=== PATIENT | male | born 1960 | race Hispanic/Latino ===

== ENCOUNTER 2023-06-21 07:01 | Day surgery (SDC) | payer MEDICARE ==
[~2023-06-21] VITALS: Ht 162.6 cm; Wt 82.1 kg
[~2023-06-21 07:01] MED LIST: BAYER ASPIRIN E81 MG PO; CRESTOR5 MG PO; DIOVAN160 MG PO; FARXIGA10 MG PO; GABAPENTIN300 MG PO; GLYBURID MCR3 MG PO; HYDROCHLOROT25 MG PO; LANTUS SOLOSTAR SC; METFORMIN; PROTONIX40 M1 IV; SIMVASTATIN40 MG PO; TAMSULOSIN0.4 MG PO; TRESIBA FL100 UNIT/M SC
[2023-06-21 10:00] VITALS: BP 117/75
== END 2023-06-21 10:20 | disposition home or self-care (01) ==
LOC: ORM 07:01
PROVIDERS: ATTEND Urology
PROC: 0VB03ZX Excision of Prostate, Percutaneous Approach, Diagnostic (ICD-10-PCS; principal; 2023-06-21)
DX: C61 Malignant neoplasm of prostate (principal); C79.89 Secondary malignant neoplasm of other specified sites; E11.9 Type 2 diabetes mellitus without complications; I10 Essential (primary) hypertension; J44.9 Chronic obstructive pulmonary disease, unspecified; K21.9 Gastro-esophageal reflux disease without esophagitis; E78.5 Hyperlipidemia, unspecified; Z79.4 Long term (current) use of insulin; Z79.84 Long term (current) use of oral hypoglycemic drugs; Z87.891 Personal history of nicotine dependence
CPT/HCPCS: J1956